=== PATIENT | male | born 1960 | race Hispanic/Latino ===

== ENCOUNTER 2017-05-13 13:41 | Outpatient (CLI) | payer OTHER ==
--- NOTE | 2017-05-13 15:35 | MRI ---
MRI OF THE RIGHT KNEE 05/13/17 PROVIDED CLINICAL HISTORY: Right knee pain status post injury. FINDINGS: The anterior cruciate ligament, posterior cruciate ligament, medial collateral ligaments, and lateral collateral ligamentous complex demonstrate an intact MR appearance, as does the extensor mechanism. The medial and lateral menisci demonstrate no definite evidence for tear. There is focal marrow edema involving the central weightbearing portions of the medial femoral condyl e associated with a linear focus of subchondral T1 and T2 hypointensity compatible with a small insuf ficiency fracture. There is a heterogeneous appearance to the overlying articular cartilage without f ull thickness defect in this region apparent. There is a near full thickness articular cartilage defe ct measuring at least 4 mm involving the median ridge of the patella. There is a large knee joint effusion. There is an intra-articular body of the medial gastrocnemius re cess measuring about 3 mm as well as an intra-articular body at the anterior aspect of the anterior h orn of the lateral meniscus. Regional marrow and muscular signal appear otherwise unremarkable. IMPRESSION: 1. Findings compatible with subchondral insufficiency fracture involving the medial femoral cond yle. 2. Patellar articular cartilage defect. 3. Large knee joint effusion with intra-articular bodies. POS: C
== END 2017-05-13 13:42 | disposition home or self-care (01) ==
LOC: MRI 13:41
PROVIDERS: ATTEND Family Medicine
DX: M23.91 Unspecified internal derangement of right knee (principal); M25.461 Effusion, right knee; M95.8 Other specified acquired deformities of musculoskeletal system

== ENCOUNTER 2017-09-03 15:41 | Outpatient (CLI) | payer OTHER ==
[2017-09-03 16:37] LABS: Anion Gap 12 mmol/L (10-20); BUN (Urea Nitrogen) 15 mg/dL (8.4-25.7); Calc. Creatinine Clearance 0 mL/min (70-130); Calcium 9.2 mg/dL (7.8-10.44); Carbon Dioxide 27 mmol/L (22-29); Chloride 103 mmol/L (98-107); Estimated GFR-MDRD 79; Glucose 98 mg/dL (70-105); Sodium 138 mmol/L (136-145)
[2017-09-03 16:51] LABS: #Eosinphils 0.2 thou/uL (0.0-0.7); #Lymphocytes 2.1 thou/uL (1.20-3.40); #Monocytes 0.7 thou/uL (0.11-0.59); #Neutrophils 4.1 thou/uL (1.40-6.50); %Basophils 0.2 % (0.0-1.0); %Eosinophils 2.5 % (0.0-10.0); %Lymphocytes 29.5 % (21.0-51.0); %Monocytes 9.4 % (0.0-10.0); %Neutrophils 58.4 % (42.0-75.0); Hemoglobin 13.1 g/dL (14.0-18.0); Mean Corpuscular Hemoglobin 20.5 pg (27.0-31.0); Mean Corpuscular Volume 63.9 fl (80.0-94.0); Mean Platelet Volume 5.6 fL (7.4-10.4); Platelet Count 194 thou/uL (130-400); RBC Distribution Width 15.7 % (11.5-14.5); Red Blood Cell (RBC) Count 6.39 mill/uL (4.70-6.10); Reflex for Review?? NO
[2017-09-03 17:30] LABS: Anisocytosis SLIGHT = 6-15 cells (100X) (0-5/hpf); Elliptocytes SLIGHT = 2-5 cells (100X) (0-1/hpf); Hypochromia SLIGHT = 6-15 cells (100X) (0-5/hpf); Microcytosis SLIGHT = 6-15 cells (100X) (0-5/hpf); Ovalocytes SLIGHT = 2-5 cells (100X) (0-1/hpf); PLT Morphology Comment Appears Adequate; Polychromasia SLIGHT = 2-3 cells (100X) (0-2/hpf); Schistocytes SLIGHT = 2-5 cells (100X) (0-1/hpf); Target Cells SLIGHT = 2-5 cells (100X) (0-1/hpf); Tear Drops SLIGHT = 2-5 cells (100X) (0-1/hpf)
== END 2017-09-03 15:42 | disposition home or self-care (01) ==
LOC: LABBT 15:41
PROVIDERS: ATTEND Orthopaedic Surgery
DX: Z01.812 Encounter for preprocedural laboratory examination (principal); M23.41 Loose body in knee, right knee
CPT/HCPCS: 80048; 85025

== ENCOUNTER 2017-09-10 05:53 | Day surgery (SDC) | payer OTHER ==
[2017-09-03 15:55] VITALS: BMI 24.3
[2017-09-10] MEDS ORDERED: CEFAZOLIN/Water 2 GM/20 ML SYRINGE ONE (08:03)
[2017-09-10] MEDS ORDERED: Diprivan 20 ML ONE (08:20)
[2017-09-10] MEDS ORDERED: Bupivacaine HCl 0.5%/Epinephrine 1:200,000/PF 30 ml Vial ONE (09:07)
[2017-09-10] MEDS ORDERED: Fentanyl 250 MCG/5 ML VIAL ONE (09:08)
--- NOTE | 2017-09-10 12:25 | OP ---
PREOPERATIVE DIAGNOSIS: Loose body, right knee. POSTOPERATIVE DIAGNOSIS: Articular cartilage flap tear of the right knee. SURGICAL PROCEDURE: Arthroscopic debridement of the right medial femoral condyle. SURGEON: Bola Arboleda M.D. ANESTHESIA: General. BLOOD LOSS: Minimal. SPECIMEN: None. DRAINS: None. COMPLICATIONS: None. PROCEDURE IN DETAIL: The patient was taken to the operating room where general anesthesia was induce d. The right leg was prepped and draped in the usual sterile fashion. No tourniquet was used. Scop e was placed in the lateral portal and probe was placed in medial portal. Patellofemoral joint was f ree of disease. Lateral compartment was free of disease. Medial compartment had what first looked t o be a loose body in the joint. This corresponds well with his area of tenderness; however, there wa s excellent articular cartilage flap tear, which was quite large, was debrided using a shaver and smo othed using a 4-0 full radius resector. I probed the cartilage and confirmed it was stable. The men iscus was probed medially and laterally, confirmed to be stable. Knee was then drained. Sterile isela ssings applied.
== END 2017-09-10 11:25 | disposition home or self-care (01) ==
LOC: SDC 05:53
PROVIDERS: ATTEND Orthopaedic Surgery
PROC: 0SBC4ZZ Excision of Right Knee Joint, Percutaneous Endoscopic Approach (ICD-10-PCS; principal; 2017-09-10)
DX: M23.91 Unspecified internal derangement of right knee (principal); Z98.890 Other specified postprocedural states
CPT/HCPCS: G8978-GP-CI; G8979-GP-CI; G8980-GP-CI; J0670; J2704; J3010

== ENCOUNTER 2020-01-11 09:37 | Outpatient (CLI) | payer OTHER ==
--- NOTE | 2020-01-11 11:00 | MRI ---
MRI RIGHT KNEE: DATE: 01/11/2020. PROVIDED CLINICAL HISTORY: Right knee pain. FINDINGS: Comparison 05/13/2017. FINDINGS: The anterior cruciate ligament, posterior cruciate ligament, medial collateral ligament, and lateral collateral ligamentous complex demonstrate an intact MR appearance, as does the extensor mechanism. The medial and lateral menisci demonstrate no evidence for a tear. There is a focal full-thickness articular cartilage defect involving the central weightbearing portio n of the medial femoral condyle measuring about 3 mm in AP dimension and about 1 mm in transverse dim ension. There is minimal subjacent subcortical signal alteration. Articular cartilage fissuring is again seen involving the median ridge of the patella, appearing full-thickness. Articular cartilage appears otherwise preserved. The amount of fluid within the knee joint appears physiologic. No focal concerning regional marrow o r muscular signal abnormality apparent. IMPRESSION: 1. Small full-thickness articular cartilage defect involving the medial femoral condyle. 2. Conspicuous patellar chondrosis. POS: MIGDALIA
== END 2020-01-11 09:38 | disposition home or self-care (01) ==
LOC: BICMRI 09:37
PROVIDERS: ATTEND Family Medicine
DX: S89.91XD Unspecified injury of right lower leg, subsequent encounter (principal); M94.9 Disorder of cartilage, unspecified

== ENCOUNTER 2020-06-24 15:29 | Emergency (ER) | payer BC ==
[2020-06-24] MEDS ORDERED: Ketorolac Tromethamine 30 MG/ML VIAL ONE (16:47)
[2020-06-24] MEDS ORDERED: Dexamethasone 4 MG TAB ONE (16:48)
--- NOTE | 2020-06-24 16:55 | RAD ---
XR Lumbar Spine 2 Or 3 View History: Low back pain Comparison: None. Findings: Low-grade levoscoliosis lumbar spine. No acute fracture or malalignment. Mild facet arthrosis L4/L5 and L5/S1. No significant listhesis. Mild posterior L5/S1 disc space height loss. Right upper quadrant surgical clips. Moderate degenerative disease of the SI joints. Impression: Mild-moderate lower lumbar spondylosis.
[2020-06-24] MEDS ORDERED: HYDROcodone/Acetaminophen 5/325 mg Tablet ONE (17:35)
== END 2020-06-24 17:40 | disposition home or self-care (01) ==
LOC: ERS 15:29
DX: M54.42 Lumbago with sciatica, left side (principal); Z87.891 Personal history of nicotine dependence
CPT/HCPCS: 72100; 96372; J1885; J8540

== ENCOUNTER 2020-07-28 09:27 | Emergency (ER) | payer BC ==
--- NOTE | 2020-07-28 10:04 | RAD ---
RADIOGRAPH CHEST 2 VIEWS: DATE: 07/28/2020 HISTORY: 59-year-old male with hypertension FINDINGS: There is no airspace density, pulmonary edema, pleural effusion, pneumothorax, or cardiomegaly. IMPRESSION: No acute cardiopulmonary findings.
[2020-07-28 10:16] LABS: Hemoglobin 13.5 g/dL (14.0-18.0); Mean Corpuscular HGB CONC 33.3 g/dL (32.0-36.0); Mean Corpuscular Hemoglobin 20.7 pg (27.0-31.0); Red Blood Cell (RBC) Count 6.51 mill/uL (4.70-6.10); White Blood Cell (WBC) Count 8.6 thou/uL (4.8-10.8)
[2020-07-28 10:26] LABS: ALT (SGPT) 31 U/L (8-55); AST (SGOT) 26 U/L (5-34); Albumin 4.1 g/dL (3.4-4.8); Alkaline Phosphatase 121 U/L (40-110); Anion Gap 14 mmol/L (10-20); BUN (Urea Nitrogen) 20 mg/dL (8.4-25.7); Bilirubin, Total 0.9 mg/dL (0.2-1.2); Calc. Creatinine Clearance 0 mL/min (70-130); Calcium 8.8 mg/dL (7.8-10.44); Carbon Dioxide 27 mmol/L (23-31); Chloride 105 mmol/L (98-107); Glucose 124 mg/dL (80-115); Potassium 4.1 mmol/L (3.5-5.1); Protein, Total 7.1 g/dL (5.8-8.1); Sodium 142 mmol/L (136-145)
[2020-07-28 10:50] LABS: #Basophils 0.1 thou/uL (0.0-0.2); #Eosinphils 0.2 thou/uL (0.0-0.7); #Lymphocytes 1.9 thou/uL (1.20-3.40); #Monocytes 0.9 thou/uL (0.11-0.59); #Neutrophils 5.5 thou/uL (1.40-6.50); %Basophils 0.8 % (0.0-1.0); %Lymphocytes 22.3 % (21.0-51.0); %Monocytes 10.3 % (0.0-10.0); %Neutrophils 64.5 % (42.0-75.0); Anisocytosis MODERATE=16-30 cells (100X) (0-5/hpf); MDiff Complete? YES; Mean Platelet Volume 7.1 fL (7.4-10.4); Microcytosis MODERATE=15-30 cells (100X) (0-5/hpf); Platelet Count 184 thou/uL (130-400); Poikilocytosis SLIGHT = 6-15 cells (100X) (0-5/hpf); Reflex for Review?? YES; Target Cells SLIGHT = 2-5 cells (100X) (0-1/hpf)
== END 2020-07-28 12:02 | disposition home or self-care (01) ==
LOC: ERS 09:27
DX: L27.1 Localized skin eruption due to drugs and medicaments taken internally (principal); R42 Dizziness and giddiness; I10 Essential (primary) hypertension; Z87.891 Personal history of nicotine dependence; T38.0X5A Adverse effect of glucocorticoids and synthetic analogues, initial encounter
CPT/HCPCS: 36415; 71046; 80053; 84484; 85025; 85060; 93005

== ENCOUNTER 2021-06-11 10:23 | Outpatient (CLI) | payer BC ==
[2021-06-11 11:32] LABS: Hemoglobin 13.3 g/dL (13.5-17.5); Mean Corpuscular HGB CONC 31.1 g/dL (32.0-36.0); Mean Corpuscular Hemoglobin 19.7 pg (27.0-33.0); Mean Corpuscular Volume 63.3 fl (81.2-95.1); Platelet Count 186 10x3/uL (150-450); RBC Distribution Width 18.6 % (11.5-14.5); Red Blood Cell (RBC) Count 6.75 10x6/uL (4.32-5.72); White Blood Cell (WBC) Count 7.4 10x3/uL (3.5-10.5)
[2021-06-11 11:48] LABS: Anion Gap 12 mmol/L (10-20); BUN (Urea Nitrogen) 15 mg/dL (8.4-25.7); Calc. Creatinine Clearance 0 mL/min (70-130); Calcium 9.2 mg/dL (7.8-10.44); Carbon Dioxide 27 mmol/L (23-31); Chloride 103 mmol/L (98-107); Glucose 108 mg/dL (80-115); Potassium 4.3 mmol/L (3.5-5.1); Sodium 138 mmol/L (136-145)
[2021-06-11 23:29] LABS: SARS-CoV-2 PCR by NAA Not Detected (NotDetected)
== END 2021-06-11 10:24 | disposition home or self-care (01) ==
LOC: LABBT 10:23
PROVIDERS: ATTEND Neurological Surgery
DX: Z01.818 Encounter for other preprocedural examination (principal); Z20.822 Contact with and (suspected) exposure to COVID-19
CPT/HCPCS: 80048; 85027; 93005; 93010; U0003; U0005

== ENCOUNTER 2021-06-16 07:03 | Day surgery (SDC) | payer BC ==
[2021-06-12 15:27] VITALS: BMI 24.3
[2021-06-16] MEDS ORDERED: ceFAZolin 2 GM/DEX 5% 100 ML BAG ONE (08:19)
[2021-06-16] MEDS ORDERED: Midazolam HCl 2 mg/2 ml Vial ONE (09:53)
[2021-06-16] MEDS ORDERED: Fentanyl 100 MCG/2 ML VIAL ONE ×3 (09:53→12:07)
[2021-06-16] MEDS ORDERED: PROPOFOL 200 MG/20 ML VIAL ONE (10:11)
[2021-06-16] MEDS ORDERED: Ondansetron PF 4 MG/2 ML Vial ONE (10:11)
[2021-06-16] MEDS ORDERED: Lidocaine 1% PF 5 ML VIAL ONE (10:11)
[2021-06-16] MEDS ORDERED: Ketorolac Tromethamine 30 MG/ML VIAL ONE (10:11)
[2021-06-16] MEDS ORDERED: Rocuronium Bromide 10 MG/ML (10ML VIAL) ONE (10:11)
[2021-06-16] MEDS ORDERED: Glycopyrrolate 0.2 MG/ML 5 ML SYRINGE ONE (10:11)
[2021-06-16] MEDS ORDERED: Dexamethasone 20 MG/5 ML VIAL ONE (10:11)
[2021-06-16] MEDS ORDERED: tiZANidine HCl 4 MG TAB ONE (14:15)
== END 2021-06-16 15:40 | disposition home or self-care (01) ==
LOC: SDC 07:03
PROVIDERS: ATTEND Neurological Surgery
PROC: 01NB0ZZ Release Lumbar Nerve, Open Approach (ICD-10-PCS; principal; 2021-06-16)
DX: M51.16 Intervertebral disc disorders with radiculopathy, lumbar region (principal)
CPT/HCPCS: 76000; C1713; J1100; J1885; J2250; J2405; J2704; J3010; J3370

== ENCOUNTER 2023-07-18 10:46 | Emergency (ER) | payer BC ==
[2023-07-18] MEDS ORDERED: Ketorolac Tromethamine 30 MG (1 mL) VIAL ONE (11:17)
[2023-07-18] MEDS ORDERED: Iopamidol-370 76% 500 ML MDV (1 ML CHARGE) ONE (11:17)
[2023-07-18] MEDS ORDERED: Morphine 4 MG/ML VIAL ONE ×3 (11:17→17:15)
[2023-07-18 11:20] LABS: #Eosinphils 0.3 thou/uL (0.0-0.7); #Monocytes 0.7 thou/uL (0.11-0.59); #Neutrophils 4.9 thou/uL (1.40-6.50); %Basophils 0.4 % (0.0-1.0); %Eosinophils 3.2 % (0.0-10.0); %Lymphocytes 24.3 % (21.0-51.0); %Monocytes 8.8 % (0.0-10.0); %Neutrophils 62.8 % (42.0-75.0); Hematocrit 44.3 % (42.0-52.0); Hemoglobin 14.2 g/dL (14.0-18.0); Mean Corpuscular HGB CONC 32.1 g/dL (32.0-36.0); Mean Corpuscular Hemoglobin 20.1 pg (27.0-31.0); Mean Corpuscular Volume 62.7 fl (78.0-98.0); Platelet Count 205 10x3/uL (130-400); RBC Distribution Width 17.8 % (11.5-14.5); Red Blood Cell (RBC) Count 7.06 mill/uL (4.70-6.10); White Blood Cell (WBC) Count 7.8 10x3/uL (4.8-10.8)
[2023-07-18 11:41] LABS: ALT (SGPT) 20 U/L (8-55); AST (SGOT) 23 U/L (5-34); Albumin 4.8 g/dL (3.4-4.8); Alkaline Phosphatase 79 U/L (40-110); Anion Gap 15 mmol/L (10-20); BUN (Urea Nitrogen) 10 mg/dL (8.4-25.7); Bilirubin, Total 1.2 mg/dL (0.2-1.2); Calc. Creatinine Clearance 0 mL/min (70-130); Calcium 9.8 mg/dL (7.8-10.44); Carbon Dioxide 24 mmol/L (23-31); Chloride 104 mmol/L (98-107); Estimated GFR 81; Globulin 3.2 g/dL (2.4-3.5); Glucose 101 mg/dL (80-115); Lipase 27 U/L (8-78); Potassium 3.8 mmol/L (3.5-5.1); Sodium 139 mmol/L (136-145)
[2023-07-18 11:44] LABS: Troponin I Less than 0.010 ng/mL (< 0.028)
[2023-07-18 12:42] LABS: Anisocytosis SLIGHT = 6-15 cells HPF (0-5); CellaVision Operator ID LAB.KB; Microcytosis MODERATE=15-30 cells HPF (0-5); Ovalocytes SLIGHT = 2-5 cells HPF (0-1); Platelet Adequacy Comment Platelets Normal; Polychromasia SLIGHT = 2-3 cells HPF (0-2)
[2023-07-18] MEDS ORDERED: Morphine 2 MG/ML VIAL ONE ×2 (14:07→17:15)
[2023-07-18] MEDS ORDERED: Cyclobenzaprine 10 MG TAB ONE (17:15)
== END 2023-07-18 18:03 | disposition home or self-care (01) ==
LOC: ERS 10:46
DX: G89.29 Other chronic pain (principal); R07.89 Other chest pain; B02.9 Zoster without complications; Z87.891 Personal history of nicotine dependence
CPT/HCPCS: 71045; 71275; 80053; 83690; 84484; 85025; 93005; 96374; 96375; 96376; J1885; J2270; J2272; Q9967

== ENCOUNTER 2024-03-20 09:57 | Inpatient (IN) | payer BC, MEDICARE ==
[2024-03-20 11:24] LABS: #Basophils 0.03 10x3/uL (0.0-0.2); %Basophils 0.4 % (0.0-1.0); %Eosinophils 2.9 % (0.0-10.0); %Lymphocytes 23.3 % (21.0-51.0); %Monocytes 10.1 % (0.0-10.0); %Neutrophils 62.6 % (42.0-75.0); Hematocrit 42.4 % (42.0-52.0); Hemoglobin 13.7 g/dL (14.0-18.0); Mean Corpuscular HGB CONC 32.3 g/dL (32.0-36.0); Mean Corpuscular Hemoglobin 19.6 pg (27.0-31.0); Mean Corpuscular Volume 60.7 fL (78.0-98.0); Platelet Count 188 10x3/uL (130-400); RBC Distribution Width 19.4 % (11.5-14.5); Red Blood Cell (RBC) Count 6.99 mill/uL (4.70-6.10)
[2024-03-20] MEDS ORDERED: Nitroglycerin 2% Ointment 1 INCH/1 GM Packet ONE (11:33)
[2024-03-20] MEDS ORDERED: Aspirin Chewable 81 MG TAB ONE (11:34)
[2024-03-20 11:45] LABS: ALT (SGPT) 18 U/L (8-55); AST (SGOT) 32 U/L (5-34); Alkaline Phosphatase 80 U/L (40-110); Anion Gap 11 mmol/L (10-20); BUN (Urea Nitrogen) 20 mg/dL (8.4-25.7); Bilirubin, Total 0.9 mg/dL (0.2-1.2); Calc. Creatinine Clearance 0 mL/min (70-130); Calcium 9.1 mg/dL (7.8-10.44); Carbon Dioxide 27 mmol/L (23-31); Chloride 106 mmol/L (98-107); Estimated GFR 81; Glucose 100 mg/dL (80-115); Potassium 4.9 mmol/L (3.5-5.1); Sodium 139 mmol/L (136-145)
[2024-03-20 11:57] LABS: Troponin I Less than 0.010 ng/mL (< 0.028)
[2024-03-20] MEDS ORDERED: Senokot S 8.6-50 MG TAB PO PRN (12:41)
[2024-03-20] MEDS ORDERED: Acetaminophen 325 MG TAB PO PRN (12:41)
[2024-03-20] MEDS ORDERED: Ondansetron PF 4 MG/2 ML Vial IVP PRN (12:41)
[2024-03-20] MEDS ORDERED: Calcium Carbonate 500 MG ChewTAB PO PRN (12:41)
[2024-03-20 17:35] VITALS: BMI 24.6
[2024-03-20 20:34] LABS: Troponin I Less than 0.010 ng/mL (< 0.028)
[2024-03-20] MEDS: Nitroglycerin 2% Ointment 1 INCH/1 GM Packet TOP SCH (21:42)
[2024-03-20] MEDS: Gabapentin 300 MG CAP PO SCH (21:42)
[2024-03-20] MEDS: traMADol HCl 50 MG TAB PO PRN (21:43)
[2024-03-20] MEDS: Atorvastatin Calcium 40 MG TAB PO SCH (21:43)
[2024-03-21 00:05] LABS: Troponin I Less than 0.010 ng/mL (< 0.028)
[2024-03-21] MEDS: Morphine 2 MG/ML VIAL SLOW IVP PRN (06:42)
[2024-03-21 07:06] LABS: ALT (SGPT) 15 U/L (8-55); AST (SGOT) 19 U/L (5-34); Albumin 3.6 g/dL (3.4-4.8); Alkaline Phosphatase 74 U/L (40-110); Anion Gap 11 mmol/L (10-20); BUN (Urea Nitrogen) 19 mg/dL (8.4-25.7); Bilirubin, Total 1.3 mg/dL (0.2-1.2); Calc. Creatinine Clearance 81 mL/min (70-130); Calcium 8.7 mg/dL (7.8-10.44); Carbon Dioxide 25 mmol/L (23-31); Cardiac Risk 3.4 (Less than 4.5); Chloride 106 mmol/L (98-107); Cholesterol 142 mg/dl (< 200 Desired); Estimated GFR 90; Globulin 2.2 g/dL (2.4-3.5); Glucose 98 mg/dL (80-115); HDL Cholesterol 42 mg/dL (>60 Neg Risk); LDL Cholesterol, Calculated 72 mg/dL; Protein, Total 5.8 g/dL (5.8-8.1); Sodium 138 mmol/L (136-145); Triglycerides 141 mg/dL (Less than 150)
[2024-03-21 07:10] LABS: #Basophils 0.04 10x3/uL (0.0-0.2); %Basophils 0.6 % (0.0-1.0); %Eosinophils 4.8 % (0.0-10.0); %Lymphocytes 24.5 % (21.0-51.0); %Neutrophils 59.5 % (42.0-75.0); Hematocrit 39.8 % (42.0-52.0); Hemoglobin 12.6 g/dL (14.0-18.0); Mean Corpuscular HGB CONC 31.7 g/dL (32.0-36.0); Mean Corpuscular Hemoglobin 19.4 pg (27.0-31.0); Mean Corpuscular Volume 61.3 fL (78.0-98.0); Platelet Count 142 10x3/uL (130-400); RBC Distribution Width 18.9 % (11.5-14.5); Red Blood Cell (RBC) Count 6.49 mill/uL (4.70-6.10)
[2024-03-21 07:21] LABS: Hemoglobin A1c 5.3 % (4.0-6.0)
[2024-03-21] MEDS: Aspirin Chewable 81 MG TAB PO SCH (08:03)
[2024-03-21] MEDS: Enoxaparin 40 MG (0.4 mL) SYRINGE SC SCH (08:04)
[2024-03-21] MEDS: Cyclobenzaprine 10 MG TAB PO PRN (10:22)
[2024-03-21] MEDS ORDERED: Communication Order-Pharmacy FS SCH (17:45)
[2024-03-22] MEDS ORDERED: Verapamil 5 MG/2 ML VIAL ONE (06:28)
[2024-03-22] MEDS ORDERED: Nitroglycerin 50 MG/250 ML BOT 250 ML ONE (06:28)
[2024-03-22] MEDS ORDERED: Heparin 10,000 UNITS/ 10 ML VIAL ONE (06:28)
[2024-03-22] MEDS ORDERED: Midazolam HCl 2 mg/2 ml Vial ONE (06:28)
[2024-03-22] MEDS ORDERED: Atropine Sulfate 1 mg/10 ml Syringe ONE (06:28)
[2024-03-22] MEDS ORDERED: Adenosine 6 mg (2 mL) VIAL ONE (06:28)
[2024-03-22] MEDS ORDERED: fentaNYL 50 mcg/mL 1 mL Vial ONE (06:29)
[2024-03-22 15:59] VITALS: BP 123/63; TEMP 97.9
== END 2024-03-22 17:16 | disposition home or self-care (01) | DRG 287 ==
LOC: ERS 09:57 → SUATTDRO 09:57 → ERHOLD 12:42 → 2SW 17:29 → OBSVTOIN 03-22 15:36
PROVIDERS: ADMIT Internal Medicine; ATTEND Internal Medicine
PROC: 4A023N7 Measurement of Cardiac Sampling and Pressure, Left Heart, Percutaneous Approach (ICD-10-PCS; principal; 2024-03-22)
PROC: B2111ZZ Fluoroscopy of Multiple Coronary Arteries using Low Osmolar Contrast (ICD-10-PCS; 2024-03-22)
PROC: B2151ZZ Fluoroscopy of Left Heart using Low Osmolar Contrast (ICD-10-PCS; 2024-03-22)
DX: I25.110 Atherosclerotic heart disease of native coronary artery with unstable angina pectoris (principal); B02.29 Other postherpetic nervous system involvement; D72.829 Elevated white blood cell count, unspecified; Z98.890 Other specified postprocedural states; Z90.49 Acquired absence of other specified parts of digestive tract; Z87.891 Personal history of nicotine dependence
CPT/HCPCS: 36415; 71046; 78451; 80053; 80061; 83036; 83690; 83735; 83880; 84443; 84484; 85025; 85347; 92978; 93005; 93458; 94760; 96372; 96374; 99152; 99153; A9502; C1753; C1769; C1887; C1894; G0378; J0153; J0461; J1644; J1650; J2250; J2272; J3010